=== PATIENT | male | born 1955 | race Asian ===

== ENCOUNTER 2020-05-02 18:23 | Observation (INO) | payer OTHER ==
[2020-05-02] MEDS ORDERED: ASPIRIN 81 MG CHEWABLE TABLETS PO ONE (19:01)
[2020-05-02] MEDS ORDERED: ASPIRIN 81 MG CHEWABLE TABLETS ONE (19:06)
--- NOTE | 2020-05-02 19:35 | PDOC ---
Documentation entered by Enriqueta Adam SCRIBE, acting as scribe for Hallie Pablo DO. Hallie Pablo DO: This documentation has been prepared by the Kia soria Brenda, SCRIBE, under my direction and personally reviewed by me in its entirety. I confirm that the documentation accurately reflects all work, treatment, procedures, and medical decision making performed by me. Attending Attestation - Resident Resident Name: LitoalfredooscarMoshe - ED Attending Attestation I have performed the following: I have examined & evaluated the patient, The case was reviewed & discussed with the resident, I agree w/resident's findings & plan, Exceptions are as noted - HPI HPI: 05/02/20 19:18 The patient is a 64 year old male with a significant PMH of who presents to the emergency department for evaluation of 3 days of intermittent chest pain associated with shortness of breath. He notes that 4 days ago he was walking and experienced an episode of weakness where he had to stop walking and had nausea/vomiting, along with chest pain that resolved. Patient arrived from [facility] 3 weeks ago and while there (2 months ago), he recieved cardia workup with an angiography that showed 1 vessel with 80% occlusion and another one with 50% occlusion, with no stents. The patient denies headache and dizziness. Denies fever, chills, diarrhea and constipation. Denies dysuria, frequency, urgency and hematuria. Allergies: NKA - Physicial Exam PE: 05/02/20 19:21 GENERAL: Awake, alert, and fully oriented, in no acute distress NECK: Normal ROM, supple, no lymphadenopathy, JVD, or masses LUNGS: Breath sounds equal, clear to auscultation bilaterally. No wheezes, and no crackles HEART: Regular rate and rhythm, normal S1 and S2, no murmurs, rubs or gallops ABDOMEN: Soft, nontender, normoactive bowel sounds. No guarding, no rebound. No masses EXTREMITIES: Normal range of motion, no edema. No clubbing or cyanosis. No cords, erythema, or tenderness NEUROLOGICAL: Cranial nerves II through XII grossly intact. Normal speech, normal gait SKIN: Warm, Dry, normal turgor, no rashes or lesions noted. - Medical Decision Making 05/02/20 19:25 a/p: 64yo male from [facility] who arrived 3 weeks ago with cp x 3 days -intermittent cp assoc with sob -was walking 4 days ago with an episode where he felt weak, had to stop walking, had 1 episode of nv, cp - resolved with rest -2m ago in [facility] underwent cardiac workup with angiography which showed 1 vessel with 80% occlusion and another w 50% occlusion - no stents placed -pt with 1 min episodes of chest pressure - no radiation -concern for acs -no pleuritic cp, no LE edema or cramping -will send labs, ekg, cxr -asa -will need obs vs admission pending trop 05/02/20 20:05 cxr clear labs pending asa given and pt feels better 05/02/20 20:45 trop neg will call pmd 05/02/20 20:51 pt updated on labs pmd dr. palm call placed to dr. palm for obs placement for cp 05/02/20 20:[address] Palm - accepts pt to obs Heart Score/ECG Review - ECG Intrepretation Comment:: 05/02/20 19:29 ekg 1: sinus at 64, nl axis, st depression inferior leads and t wave inversions lateral leads, abnl ekg ekg 2: sinus at 64, nl axis, nl interval, mild st depression inferior leads, abnl ekg Discharge - Discharge Information Problems reviewed: Yes Clinical Impression/Diagnosis: Chest pain Condition: Guarded - Admission Yes - Follow up/Referral - Patient Discharge Instructions - Post Discharge Activity
[2020-05-02 19:39] LABS: INR 1.25 (0.83-1.09); PROTHROMBIN TIME (PATIENT) 14.8 SEC (9.7-13.0)
[2020-05-02 19:40] LABS: BASO % 3.4 % (0-2.0); EOS % 1.1 % (0-4.5); HEMATOCRIT 44.6 % (35.4-49); HEMOGLOBIN 14.7 GM/dL (11.7-16.9); LYMPH % 25.4 % (8-40); MCH 30.3 pg (25.7-33.7); MEAN CELL VOLUME 91.5 fl (80-96); MEAN PLT VOLUME 7.7 fl (7.5-11.1); NEUT % 62.1 % (42.8-82.8); PLATELET COUNT 300 K/MM3 (134-434); RBC 4.87 M/mm3 (4.00-5.60); RDW 13.6 % (11.9-15.9); WHITE BLOOD COUNT 9.1 K/mm3 (4.0-10.0)
[2020-05-02 19:42] LABS: ACTIVATED PTT 36.1 SECONDS (25.2-36.5)
--- NOTE | 2020-05-02 20:04 | PDOC ---
History of Present Illness - General Chief Complaint: Chest Pain Stated Complaint: CHEST PAIN Time Seen by Provider: 05/02/20 18:46 - History of Present Illness Initial Comments: 05/02/20 19:58 64M with PMH of CAD (reported 80% occlusion in an unspecified coronary 2 months ago in [facility] with no reported intervention), HLD, longtime smoker, presents with 4 days of intermitted left sided pressure-like chest pain. Worse when walking but also occurs at rest, lasts for a minute, does not radiate, associated with SOB, sweating, and lightheadedness. Denies n/v. Reports back pain that is not related in timing to the chest pain. PMH: as above PSH: none Allergies Allergy/AdvReac Type Severity Reaction Status Date / Time No Known Allergies Allergy Verified 05/02/20 18:27 ROS GENERAL/CONSTITUTIONAL: No fever or chills. No weakness. HEAD, EYES, EARS, NOSE AND THROAT: No change in vision. No ear pain or discharge. No sore throat. CARDIOVASCULAR: chest pain and shortness of breath RESPIRATORY: No cough, wheezing, or hemoptysis. GASTROINTESTINAL: No nausea, vomiting, diarrhea or constipation. GENITOURINARY: No dysuria, frequency, or change in urination. MUSCULOSKELETAL: No joint or muscle swelling or pain. No neck or back pain. SKIN: No rash NEUROLOGIC: No headache, vertigo, loss of consciousness, or change in strength/sensation. ENDOCRINE: No increased thirst. No abnormal weight change HEMATOLOGIC/LYMPHATIC: No anemia, easy bleeding, or history of blood clots. ALLERGIC/IMMUNOLOGIC: No hives or skin allergy. PE GENERAL: Awake, alert, and fully oriented, in no acute distress HEAD: No signs of trauma, normocephalic, atraumatic EYES: PERRLA, EOMI, sclera anicteric, conjunctiva clear ENT: Auricles normal inspection, hearing grossly normal, nares patent, oropharynx clear without exudates. Moist mucosa NECK: Normal ROM, supple, no lymphadenopathy, JVD, or masses LUNGS: No distress, speaks full sentences, clear to auscultation bilaterally HEART: Regular rate and rhythm, normal S1 and S2, no murmurs, rubs or gallops, peripheral pulses normal and equal bilaterally. ABDOMEN: Soft, nontender, normoactive bowel sounds. No guarding, no rebound. No masses EXTREMITIES : Normal inspection, Normal range of motion, no edema. No clubbing or cyanosis. NEUROLOGICAL: Normal speech, no focal sensorimotor deficits SKIN: Warm, Dry, normal turgor, no rashes or lesions noted Vital Signs Temp Pulse Resp BP Pulse Ox 98.5 F 68 20 124/77 97 05/02/20 18:27 05/02/20 19:10 05/02/20 19:10 05/02/20 19:10 05/02/20 19:10 64M with PMH of CAD (reported 80% occlusion in an unspecified coronary 2 months ago in [facility] with no reported intervention), HLD, longtime smoker, presents with 4 days of intermitted left sided pressure-like chest pain. Vitals and exam unremarkable. DDx includes ACS, pneumonia, GERD. -EKG -CXR -CBC, CMP, cardiac enzymes, TSH, lipase -aspirin 324 05/02/20 22:08 EKG at 18:36: NSR, rate 64, normal axis and intervals, ST depressions in II, III, and aVF with TWI in V4-V5 EKG at 19:02: unchanged. NSR, rate 64, normal axis and intervals, ST depressions in II, III, and aVF with TWI in V4-V5 CXR: no acute pathology Labs: unremarkable. trop neg x1 Laboratory Last Values WBC 9.1 K/mm3 (4.0-10.0) 05/02/20 18:43 RBC 4.87 M/mm3 (4.00-5.60) 05/02/20 18:43 Hgb 14.7 GM/dL (11.7-16.9) 05/02/20 18:43 Hct 44.6 % (35.4-49) 05/02/20 18:43 MCV 91.5 fl (80-96) 05/02/20 18:43 MCH 30.3 pg (25.7-33.7) 05/02/20 18:43 MCHC 33.0 g/dl (32.0-35.9) 05/02/20 18:43 RDW 13.6 % (11.9-15.9) 05/02/20 18:43 Plt Count 300 K/MM3 (134-434) 05/02/20 18:43 MPV 7.7 fl (7.5-11.1) 05/02/20 18:43 Absolute Neuts (auto) 5.7 K/mm3 (1.5-8.0) 05/02/20 18:43 Neutrophils % 62.1 % (42.8-82.8) 05/02/20 18:43 Lymphocytes % 25.4 % (8-40) 05/02/20 18:43 Monocytes % 8.0 % (3.8-10.2) 05/02/20 18:43 Eosinophils % 1.1 % (0-4.5) 05/02/20 18:43 Basophils % 3.4 % (0-2.0) H 05/02/20 18:43 Nucleated RBC % 0 % (0-0) 05/02/20 18:43 PT with INR 14.80 SEC (9.7-13.0) H 05/02/20 18:43 INR 1.25 (0.83-1.09) H 05/02/20 18:43 PTT (Actin FS) 36.1 SECONDS (25.2-36.5) 05/02/20 18:43 Sodium 141 mmol/L (136-145) 05/02/20 18:43 Potassium 3.8 mmol/L (3.5-5.1) 05/02/20 18:43 Chloride 108 mmol/L (98-107) H 05/02/20 18:43 Carbon Dioxide 28 mmol/L (21-32) 05/02/20 18:43 Anion Gap 5 MMOL/L (8-16) L 05/02/20 18:43 BUN 12.5 mg/dL (7-18) 05/02/20 18:43 Creatinine 0.9 mg/dL (0.55-1.3) 05/02/20 18:43 Est GFR (CKD-EPI)AfAm 105.72 05/02/20 18:43 Est GFR (CKD-EPI)NonAf 91.22 05/02/20 18:43 Random Glucose 96 mg/dL (74-106) 05/02/20 18:43 Calcium 8.4 mg/dL (8.5-10.1) L 05/02/20 18:43 Magnesium 2.1 mg/dL (1.8-2.4) 05/02/20 18:43 Total Bilirubin 0.4 mg/dL (0.2-1) 05/02/20 18:43 AST 20 U/L (15-37) 05/02/20 18:43 ALT 23 U/L (13-61) 05/02/20 18:43 Alkaline Phosphatase 86 U/L (45-117) 05/02/20 18:43 Creatine Kinase 113 U/L (26-308) 05/02/20 18:43 Troponin I < 0.02 ng/ml (0.00-0.05) 05/02/20 18:43 B-Natriuretic Peptide 43.9 pg/ml (5-125) 05/02/20 18:43 Total Protein 6.9 g/dl (6.4-8.2) 05/02/20 18:43 Albumin 3.5 g/dl (3.4-5.0) 05/02/20 18:43 Lipase 219 U/L (73-393) 05/02/20 18:43 TSH 1.37 uIU/ml (0.358-3.74) 05/02/20 18:43 Admit to tele-obs for r/o [place] Signed out to admitting attending 05/02/20 22:18 Past History - Medical History Allergies/Adverse Reactions: Allergies Allergy/AdvReac Type Severity Reaction Status Date / Time No Known Allergies Allergy Verified 05/02/20 18:27 COPD: No HTN: Yes - Psycho-Social/Smoking History Smoking History: Current every day smoker Have you smoked in the past 12 months: Yes Number of Cigarettes Smoked Daily: 20 Information on smoking cessation initiated: Yes - Substance Abuse Hx (Audit-C & DAST Scrn) How often the patient has a drink containing alcohol: Never Score: In Men: 4 or > Positive; In Women: 3 or > Positive: 0 Screen Result (Pos requires Nsg. Audit-10AR): Negative In the last yr the pt used illegal drug/Rx for NonMed reason: No Score: Yes response is considered Positive: 0 Screen Result (Positive result requires Nsg. DAST-10): Negative *Physical Exam - Vital Signs Last Vital Signs Temp Pulse Resp BP Pulse Ox 98.5 F 68 20 124/77 97 05/02/20 18:27 05/02/20 19:10 05/02/20 19:10 05/02/20 19:10 05/02/20 19:10 ED Treatment Course - LABORATORY CBC & Chemistry Diagram: 05/02/20 18:43 05/02/20 18:43 - ADDITIONAL ORDERS Additional order review: Laboratory Results 05/02/20 18:43 PT with INR 14.80 H INR 1.25 H PTT (Actin FS) 36.1 05/02/20 18:43 RBC 4.87 MCV 91.5 MCHC 33.0 RDW 13.6 MPV 7.7 Neutrophils % 62.1 Lymphocytes % 25.4 Monocytes % 8.0 Eosinophils % 1.1 Basophils % 3.4 H - Medications Given in the ED: ED Medications Discontinued Medications Generic Name Dose Route Start Last Admin Trade Name Freq PRN Reason Stop Dose Admin Aspirin 324 mg 05/02/20 19:01 05/02/20 19:12 Asa - PO 05/02/20 19:02 324 mg ONCE ONE Administration Discharge - Discharge Information Problems reviewed: Yes Clinical Impression/Diagnosis: Chest pain Qualifiers: Chest pain type: unspecified Qualified Code(s): R07.9 - Chest pain, unspecified Condition: Guarded - Follow up/Referral - Patient Discharge Instructions - Post Discharge Activity
[2020-05-02 20:21] LABS: ALBUMIN 3.5 g/dl (3.4-5.0); ALK PHOS 86 U/L (45-117); ANION GAP 5 MMOL/L (8-16); BILIRUBIN,TOTAL 0.4 mg/dL (0.2-1); BLOOD UREA NITROGEN 12.5 mg/dL (7-18); CALCIUM 8.4 mg/dL (8.5-10.1); CHLORIDE 108 mmol/L (98-107); CO2 28 mmol/L (21-32); CREATININE 0.9 mg/dL (0.55-1.3); GLUCOSE,RANDOM 96 mg/dL (74-106); LIPASE 219 U/L (73-393); MAGNESIUM 2.1 mg/dL (1.8-2.4); N-TERMINAL BNP 43.9 pg/ml (5-125); POTASSIUM 3.8 mmol/L (3.5-5.1); SGOT/AST 20 U/L (15-37); SGPT/ALT 23 U/L (13-61); SODIUM 141 mmol/L (136-145); TOT PROT 6.9 g/dl (6.4-8.2)
[2020-05-02] MEDS ORDERED: ACETAMINOPHEN 325 MG TABLET (FP) PO ONE (20:50)
[2020-05-02] MEDS ORDERED: ATORVASTATIN CA 80 MG TABLET (FP) PO ONE (21:05)
[2020-05-02] MEDS ORDERED: NITROGLYCERIN SUBLINGUAL 1/150 0.4 MG TAB SL PRN (21:08)
[2020-05-02] MEDS ORDERED: ACETAMINOPHEN 325 MG TABLET (FP) ONE (21:39)
[2020-05-02] MEDS ORDERED: ATORVASTATIN CA 80 MG TABLET (FP) ONE (21:39)
[2020-05-02 22:02] LABS: CHOLESTEROL 145 mg/dL (50-200); HDL CHOLESTEROL 41 mg/dL (40-60); LDL CHOLESTEROL (ONLY SJRH) 87 mg/dL (5-100); TRIGLYCERIDES 135 mg/dL (0-150)
--- NOTE | 2020-05-03 06:12 | CON.CARD ---
Consult Consult Specialty:: Cardiology Referred by:: Dr Alberto Reason for Consultation:: Angina - History of Present Illness Chief Complaint: exertional chest pain History of Present Illness: 64 M with reported CAD on recent cath in [facility] presents with exertional chest pain, nausea. Enzymes negative x 2 History was obtained using senior telecommunications technician phone. Patient describes 1 year of exertional chest pain, occasionally radiating to back. He was cathed in [facility], where he resides, 2 weeks ago and was told he had one 50% stenosis and one 80% stenosis- PCI was recommended, but he was declined and was put on medical therapy with 5 medications which helped his angina. [place] to [place] to visit daughter and yesterday felt escalation of his symptoms- worsened exertional chest pain and nausea and it was more frequent, came to ER. PMH: HLD, CAD ALL: None SH: smokes 20 cigs/day. Works in a bank. - History Source History Provided By: Patient - Past Medical History Cardio/Vascular: Yes: CAD Pulmonary: No: Asthma, Bronchitis, Cancer, COPD, O2 Dependent, Pneumonia, Previously Intubated, Pulmonary Embolus, Pulmonary Fibrosis, Sleep Apnea, Other Gastrointestinal: No: Ascites, Cancer, Constipation, Crohn's Disease, Diverticulitis, Diverticulosis, Esophageal Varices, Gastritis, GERD, GI Bleed, Hemorrhoids, Hiatal Hernia, Inflamatory Bowel Disease, Irritable Bowel Disease, Pancreatitis, Peptic Ulcer Disease, Ulcerative Colitis, Other Hepatobiliary: No: Cirrhosis, Cholelithiasis, Cholecystitis, Choledocholithiasis, Hepatitis A, Hepatitis B, Hepatitis C, Other Renal/: No: Renal Failure, Renal Inusuff, BPH, Cancer, Hematuria, Hemodialysis, Neurogenic Bladder, Renal Calculi, UTI, Other Heme/Onc: No: Anemia, B12 Deficiency, Bleeding Disorder, Cancer, Current Chemotherapy, Current Radiation Therapy, Hemochromatosis, Hypercoaguable State, Myeloproliferative Synd, Sickle Cell Disease, Sickle Cell Trait, Thrombocytopenia, Other Infectious Disease: No: AIDS, C-Diff, Herpes Zoster, HIV, MRSA, STD's, Tuberculosis, VREF, Other Psych: No: Addictions, Anxiety, Bipolar, Depression, Panic, Psychosis, Schizophrenia, Other Musculoskeletal: No: Bursitis, Chronic low back pain, Hemiparesis, Hemiplegia, Osteoarthritis, Paraplegia, Other ENT: No: Allergic Rhinitis, Sinusitis, Other Endocrine: No: Frederick's Disease, Qi's Disease, Diabetes Insipidus, Diabetes Mellitus, Hyperparathyroidism, Hyperthyroidism, Hypothyroidism, Osteopenia, SIADH, Other Dermatology: No: Basal Cell, Cellulitis, Eczema, Melanoma, Psoriasis, Squamous Cell, Other - Alcohol/Substance Use Hx Alcohol Use: No History of Substance Use: reports: None - Smoking History Smoking history: Current every day smoker Have you smoked in the past 12 months: Yes Aproximately how many cigarettes per day: 20 - Social History Usual Living Arrangement: With Child History of Recent Travel: Yes (From [facility]) Home Medications - Allergies Allergies/Adverse Reactions: Allergies Allergy/AdvReac Type Severity Reaction Status Date / Time No Known Allergies Allergy Verified 05/02/20 18:27 Family Medical History Family History: Unable to Obtain (not pertinent to this presentation), Unremarkable Review of Systems - Review of Systems Constitutional: reports: No Symptoms Eyes: reports: No Symptoms HENT: reports: No Symptoms Neck: reports: No Symptoms Cardiovascular: reports: Chest Pain Respiratory: reports: Exercise Intolerance Gastrointestinal: reports: No Symptoms Genitourinary: reports: No Symptoms Breasts: reports: No Symptoms Reported Musculoskeletal: reports: No Symptoms Integumentary: reports: No Symptoms Endocrine: reports: No Symptoms Hematology/Lymphatic: reports: No Symptoms Psychiatric: reports: No Symptoms - Risk Factors Known Risk Factors: Yes: Age, Hypercholesterolemia, Smoking Vital Signs: Vital Signs Temperature 97.9 F 05/03/20 02:00 Pulse Rate 63 05/03/20 02:00 Respiratory Rate 18 05/03/20 05:04 Blood Pressure 119/72 05/03/20 02:00 O2 Sat by Pulse Oximetry (%) 98 05/03/20 05:04 Constitutional: Yes: No Distress, Calm Eyes: Yes: Conjunctiva Clear, EOM Intact HENT: Yes: Atraumatic, Normocephalic Neck: Yes: Supple, Trachea Midline Respiratory: Yes: Regular, Other (decreased b/l breath sounds: ?COPD) Gastrointestinal: Yes: Soft (nt) Cardiovascular: Yes: Regular Rate and Rhythm JVD: No Carotid Bruit: No Heart Sounds: Yes: S1, S2 (rrr, no m.r.g) Edema: No Peripheral Pulses WNL: Yes Neurological: Yes: Alert, Oriented ...Motor Strength: WNL - Other Data Labs, Other Data: CBC, BMP 05/02/20 18:43 05/02/20 18:43 INR, PTT INR 1.25 (0.83-1.09) H 05/02/20 18:43 Troponin, BNP 05/02/20 05/02/20 18:43 21:16 Troponin I < 0.02 < 0.02 B-Natriuretic Peptide 43.9 Troponin, BNP 05/02/20 05/02/20 18:43 21:16 Troponin I < 0.02 < 0.02 B-Natriuretic Peptide 43.9 Laboratory Tests 05/02/20 05/02/20 05/03/20 18:43 21:16 05:42 WBC 9.1 Hgb 15.2 Plt Count 284 Sodium Potassium Creatinine Troponin I < 0.02 < 0.02 05/03/20 05:42 WBC Hgb Plt Count Sodium 141 Potassium 3.9 Creatinine 0.7 Troponin I NSR64, LVH, diffuse mild nonspecific ST changes (no prior) Echo: Pending Prior Cardiac Procedures: Cardiac Catheterization Imaging - Results Chest X-ray: Report Reviewed EKG: Image Reviewed Assessment/Plan IMP: Coronary Artery Disease Unstable angina Hyperlipidemia Smoker REC: 1. CAD/Unstable Angina: - Tele - Echo for EF assessment - Need to obtain cath report : daughter has CD of cath, will ask to bring in - Medical therapy to be initiated: ASA 81mg daily, Plavix 75mg daily, Atorvastatin 40mg daily, Toprol and long acting nitrate -Check fasting lipids. -After Echo, review of cath will likely transfer to [facility] over weekend for PCI because his anginal sx have worsened on medical therapy -Try to clarify what medical regimen he was on 2. HLD: -High intensity statin -Check fasting lipids 3. Smoker: -Cessation advised.
[2020-05-03 06:41] LABS: BASO % 0.6 % (0-2.0); EOS % 2.1 % (0-4.5); HEMATOCRIT 45.2 % (35.4-49); HEMOGLOBIN 15.2 GM/dL (11.7-16.9); LYMPH % 40.9 % (8-40); MCH 30.6 pg (25.7-33.7); MCHC 33.6 g/dl (32.0-35.9); MEAN CELL VOLUME 90.9 fl (80-96); MEAN PLT VOLUME 7.7 fl (7.5-11.1); MONO % 7.4 % (3.8-10.2); PLATELET COUNT 284 K/MM3 (134-434); RBC 4.97 M/mm3 (4.00-5.60); RDW 13.3 % (11.9-15.9); WHITE BLOOD COUNT 9.1 K/mm3 (4.0-10.0)
[2020-05-03 07:13] LABS: ALBUMIN 3.2 g/dl (3.4-5.0); BILIRUBIN,TOTAL 0.7 mg/dL (0.2-1); BLOOD UREA NITROGEN 10.1 mg/dL (7-18); CALCIUM 8.5 mg/dL (8.5-10.1); CREATININE 0.7 mg/dL (0.55-1.3); POTASSIUM 3.9 mmol/L (3.5-5.1); TOT PROT 6.3 g/dl (6.4-8.2)
[2020-05-03] MEDS: CLOPIDOGREL BISULFATE 75 MG TABLET (FP) PO SCH (09:48)
[2020-05-03] MEDS: ASPIRIN 81 MG CHEWABLE TABLETS PO SCH (09:48)
[2020-05-03] MEDS: metoPROLOL SUCCINATE 25 MG TAB.SR.24H (FP) PO SCH (09:48)
[2020-05-03] MEDS ORDERED: ISOSORBIDE MONONITRATE 30 MG TAB.SR.24H (FP) PO SCH (10:00)
--- NOTE | 2020-05-03 10:02 | ECHO ---
Version: 1 Name: CLARK BERNARD Exam: Adult Echocardiogram Study Date: 05/03/2020, 8:54 AM Age: 64 Years MMode/2D Measurements & Calculations IVSd: 0.95 cm LVIDs: 1.76 cm LVIDd: 2.28 cm LVPWd: 0.83 cm LAV (MOD-bp): 25.0 ml LVOT diam: 2.00 cm Ao root diam: 2.5 cm LA dimension: 2.49 cm Doppler Measurements & Calculations MV E max krishan: 73.3 cm/sec Med E/e': 10.2 MV A max krishan: 85.3 cm/sec Med Peak E' Krishan: 7.2 cm/sec MV E/A: 0.86 Lat E/e': 7.2 Lat Peak E' Krishan: 10.1 cm/sec Ao max P.9 mmHg Ao V2 max: 131.7 cm/sec Left Ventricle Left ventricular systolic function is normal. Ejection Fraction = 55-60%. The transmitral spectral D oppler flow pattern is suggestive of impaired LV relaxation. The left ventricular wall motion is normal. Right Ventricle The right ventricle is normal in size and function. Atria Normal left and right atrial size and function. Mitral Valve The mitral valve is normal in structure and function. There is trace to mild mitral regurgitation. Tricuspid Valve The tricuspid valve is normal in structure and function. There is trace tricuspid regurgitation. Aortic Valve There is mild aortic sclerosis.;. No hemodynamically significant valvular aortic stenosis. No aortic regurgitation is present. Pulmonic Valve The pulmonic valve is not well seen, but is grossly normal. There is no pulmonic valvular stenosis. Trace pulmonic valvular regurgitation. Great Vessels The aortic root is normal size. Pericardium/Pleura There is no pericardial effusion. Summary Statements Left ventricular systolic function is normal. Ejection Fraction = 55-60%. The transmitral spectral Doppler flow pattern is suggestive of impaired LV relaxation. The right ventricle is normal in size and function. There is trace to mild mitral regurgitation. There is mild aortic sclerosis.; The aortic root is normal size. There is no pericardial effusion. MD Acuna *Stefan 05/03/2020, 10:01 AM Ordering Physician: Robinson Ingram Performed By: Ying Klein
[2020-05-03] MEDS: NICOTINE 14 MG/24 HOURS TOPICAL PATCH TD SCH (10:29)
--- NOTE | 2020-05-03 10:38 | EKG ---
Test Reason : Blood Pressure : / mmHG Vent. Rate : 064 BPM Atrial Rate : 064 BPM P-R Int : 132 ms QRS Dur : 088 ms QT Int : 356 ms P-R-T Axes : 071 074 240 degrees QTc Int : 367 ms NORMAL SINUS RHYTHM NONSPECIFIC ST ABNORMALITY ABNORMAL ECG NO PREVIOUS ECGS AVAILABLE Confirmed by JIN NGUYEN MD ([id number]) on 05/03/2020 10:38:29 AM Referred By: Confirmed By:JIN GNUYEN MD
--- NOTE | 2020-05-03 10:38 | EKG ---
Test Reason : Blood Pressure : / mmHG Vent. Rate : 064 BPM Atrial Rate : 064 BPM P-R Int : 138 ms QRS Dur : 086 ms QT Int : 394 ms P-R-T Axes : 068 075 111 degrees QTc Int : 406 ms NORMAL SINUS RHYTHM NONSPECIFIC ST ABNORMALITY ABNORMAL ECG Confirmed by JIN NGUYEN MD ([id number]) on 05/03/2020 10:38:11 AM Referred By: Confirmed By:JIN NGUYEN MD
--- NOTE | 2020-05-03 12:23 | HP ---
DATE OF ADMISSION: 05/02/2020 DATE OF DICTATION: 05/03/2020 HISTORY: This is a 64-year-old [place] male, recently came to [place], known to me for a few months, chronic smoker. No other medical problems. Came to the emergency room with chest pain, got admitted, rule out CA. Evaluated by cardiology, Dr. Aviles. He has history of grownup daughter and . He is a chronic smoker, was smoking 4 packets a day. Now last time when I saw him in the office I made him to smoke 2 packets, and we were planning to quit smoking by August 02. PHYSICAL EXAMINATION: General: Awake, alert, oriented, not in distress. Still getting some chest pain. Vital Signs: Blood pressure is 120/ , respiration 20, temperature 98. HEENT: Unremarkable. Neck: Supple. No JVD. Lungs: Clear. Heart: S1, S2 normal. No S3, S4. Abdomen: Soft, nontender. Extremities: No edema. LABORATORY: WBC 9, hemoglobin 15, platelets 284. Chemistry: Sodium 141, potassium 3.9, chloride 109, BUN 10, creatinine 0.7. Blood sugar 78. Troponin negative. Chest x-ray: Bi-apical pleural capping. No significant change. No CHF. EKG to be evaluated. IMPRESSION: Atypical chest pain, rule out myocardial infarction, and chronic smoker. Cardiology consult by Dr. Aviles appreciated. Will continue present medications. Will start on patches for nicotine withdrawal. Deyanira [id number]
[2020-05-03 13:57] VITALS: BMI 19.6
[2020-05-03] MEDS: ATORVASTATIN CA 40 MG TABLET (FP) PO SCH (21:42)
[2020-05-04] MEDS ORDERED: ACETAMINOPHEN 325 MG TABLET (FP) PO ONE (06:28)
[2020-05-04 07:23] LABS: CHOLESTEROL 138 mg/dL (50-200); HDL CHOLESTEROL 44 mg/dL (40-60); LDL CHOLESTEROL (ONLY SJRH) 84 mg/dL (5-100); TRIGLYCERIDES 93 mg/dL (0-150)
--- NOTE | 2020-05-04 08:41 | PN ---
Progress Note, Physician Chief Complaint: No new chest pain History of Present Illness: 64 yrs old man smoker H/o CAd recent Cath at [facility] in 03/2020 shows 70-80% Left Circumflex and 50% LAD, LCX PCI was advised but patient declined now present with ongoing chest pain despite maximum medical therapy normal serial CE and ECHO no acute ST T changes in EKG, evaluated by Cardiology recommended transfer to [facility] for possible PCI - Current Medication List Current Medications: Active Medications Aspirin (Asa -) 81 mg PO DAILY [facility] Last Admin: 05/03/20 09:48 Dose: 81 mg Documented by: Atorvastatin Calcium (Lipitor -) 40 mg PO HS [facility] Last Admin: 05/03/20 21:42 Dose: 40 mg Documented by: Clopidogrel Bisulfate (Plavix -) 75 mg PO DAILY [facility] Last Admin: 05/03/20 09:48 Dose: 75 mg Documented by: Isosorbide Mononitrate (Imdur -) 30 mg PO DAILY [facility] Metoprolol Succinate (Toprol Xl -) 12.5 mg PO DAILY [facility] Last Admin: 05/03/20 09:48 Dose: 12.5 mg Documented by: Nicotine (Nicoderm Patch -) 14 mg TD DAILY [facility] Last Admin: 05/03/20 10:29 Dose: 14 mg Documented by: Nitroglycerin (Nitrostat -) 0.4 mg SL Q5M PRN PRN Reason: FOR CHEST PAIN - Objective Vital Signs: Vital Signs Temperature 97.8 F 05/04/20 05:45 Pulse Rate 61 05/04/20 05:45 Respiratory Rate 16 05/04/20 05:45 Blood Pressure 115/61 05/04/20 05:45 O2 Sat by Pulse Oximetry (%) 97 05/04/20 05:45 Middle aged man not in distress HEENT:MM moist, no anemia, PERRLA EOMI NECK: No JVd No Bruit CJEST: Non tender CTA B/L CVS: S1S2 R ABD: no distention , non tender Bs + EXT: No edema, feet [employer]ARBAGE COLLECTOR DRIVER: AOX3 non focal Labs: CBC, BMP 05/03/20 05:42 05/03/20 05:42 INR, PTT INR 1.25 (0.83-1.09) H 05/02/20 18:43 Problem List - Problems (1) Chest pain Assessment/Plan: H/O CAD s/p Cath at [facility] in 03/2020 shows 70-80% Left Circumflex and 50% LAD, LCX PCI was advised but patient declined now present with ongoing chest pain despite maximum medical therapy normal serial CE and ECHO no acute ST T changes in EKG, evaluated by Cardiology recommended transfer to [place] for possible PCI, cont Metoprolol XL 25 mg ASA 81 , plavix 75 abnd Lipitor 40 mg dialy HD S/L NTG PRN will hold Imdur as patient developed sever head ache with Imdur at present CP free. Code(s): R07.9 - CHEST PAIN, UNSPECIFIED Qualifiers: Chest pain type: unspecified Qualified Code(s): R07.9 - Chest pain, unspecified (2) Hyperlipidemia Assessment/Plan: LDL at target cont Lipitor 40 mg daily Problems reviewed: Yes Code(s): E78.5 - HYPERLIPIDEMIA, UNSPECIFIED (3) Encounter for smoking cessation counseling Assessment/Plan: Smoking cessation will cont Nicotine patch Problems reviewed: Yes Code(s): Z71.6 - TOBACCO ABUSE COUNSELING
[2020-05-04] MEDS: metoPROLOL SUCCINATE 25 MG TAB.SR.24H (FP) PO SCH (09:14)
[2020-05-04] MEDS: ASPIRIN 81 MG CHEWABLE TABLETS PO SCH (09:15)
[2020-05-04] MEDS: CLOPIDOGREL BISULFATE 75 MG TABLET (FP) PO SCH (09:16)
[2020-05-04] MEDS ORDERED: ISOSORBIDE MONONITRATE 30 MG TAB.SR.24H (FP) PO SCH (10:00)
[2020-05-04] MEDS ORDERED: PT OWN MED DRAWER 7, Y5N ONE (10:21)
[2020-05-04] MEDS: NICOTINE 14 MG/24 HOURS TOPICAL PATCH TD SCH (10:26)
--- NOTE | 2020-05-04 10:35 | PN ---
Progress Note (short form) - Note Progress Note: Chief Complaint: exertional chest pain History of Present Illness: 64 M with reported CAD on recent cath in [facility] presents with exertional chest pain, nausea. Enzymes negative x 2 Patient describes 1 year of exertional chest pain, occasionally radiating to back. He was cathed in [facility], where he resides, 2 weeks ago and was told he had one 50% stenosis and one 80% stenosis- PCI was recommended, but he was declined and was put on medical therapy with 5 medications which helped his angina. [place] to [place] and yesterday felt escalation of his symptoms- worsened exertional chest pain and nausea and it was more frequent, came to ER. s: today reports no cp. yesterday had mild central chest pressure. no sob palps dizzy. Current Medications Generic Name Dose Route Start Last Admin Trade Name Freq PRN Reason Stop Dose Admin Aspirin 81 mg 05/03/20 10:00 05/04/20 09:15 Asa - PO 81 mg DAILY RACHAEL Administration Atorvastatin Calcium 40 mg 05/03/20 22:00 05/03/20 21:42 Lipitor - PO 40 mg HS RACHAEL Administration Clopidogrel Bisulfate 75 mg 05/03/20 10:00 05/04/20 09:16 Plavix - PO 75 mg DAILY RACHAEL Administration Isosorbide Mononitrate 30 mg 05/04/20 10:00 05/04/20 09:16 Imdur - PO 30 mg DAILY RACHAEL Administration Metoprolol Succinate 12.5 mg 05/03/20 10:00 05/04/20 09:14 Toprol Xl - PO 12.5 mg DAILY RACHAEL Administration Nicotine 14 mg 05/03/20 10:00 05/04/20 10:26 Nicoderm Patch - TD 14 mg DAILY RACHAEL Administration Nitroglycerin 0.4 mg 05/02/20 21:08 05/04/20 09:16 Nitrostat - SL 0.4 mg Q5M PRN Administration FOR CHEST PAIN Vital Signs Period Temp Pulse Resp BP Sys/Christy Pulse Ox Last 24 Hr 97.6 F-97.9 F 59-70 16-18 94-115/57-66 96-100 Constitutional: Yes: No Distress, Calm Eyes: Yes: Conjunctiva Clear, EOM Intact HENT: Yes: Atraumatic, Normocephalic Neck: Yes: Supple, Trachea Midline Respiratory: Yes: Regular, Other (decreased b/l breath sounds: ?COPD) Gastrointestinal: Yes: Soft (nt) Cardiovascular: Yes: Regular Rate and Rhythm JVD: No Carotid Bruit: No Heart Sounds: Yes: S1, S2 (rrr, no m.r.g) Edema: No Peripheral Pulses WNL: Yes Neurological: Yes: Alert, Oriented CBC, BMP 05/03/20 05:42 05/03/20 05:42 NSR64, LVH, diffuse mild nonspecific ST changes (no prior) Prior Cardiac Procedures: Cardiac Catheterization tele: sr Imaging - Results Chest X-ray: Report Reviewed EKG: Image Reviewed Assessment/Plan IMP: Coronary Artery Disease Unstable angina Hyperlipidemia Smoker REC: 1. CAD, chest pain: - Tele benign. echo here unremarkable. -cath 03/2020 in [place] reports 70-80% midlcx (non dom). rec'd pci then but declined, now here with recurrent cp. -cont ASA 81mg daily, Plavix 75mg daily, Atorvastatin 40mg daily, Toprol and long acting nitrate -will arrange for transfer to [facility] for PCI because his anginal sx have worsened on medical therapy 2. HLD: -High intensity statin 3. Smoker: -Cessation advised.
[2020-05-04] MEDS ORDERED: ACETAMINOPHEN 325 MG TABLET (FP) PO PRN (15:14)
[2020-05-04] MEDS: ATORVASTATIN CA 40 MG TABLET (FP) PO SCH (21:03)
[2020-05-05] MEDS ORDERED: PT OWN MED DRAWER 7, Y5N ONE (08:57)
[2020-05-05] MEDS: metoPROLOL SUCCINATE 25 MG TAB.SR.24H (FP) PO SCH (09:00)
[2020-05-05] MEDS: NICOTINE 14 MG/24 HOURS TOPICAL PATCH TD SCH (09:00)
[2020-05-05] MEDS: ASPIRIN 81 MG CHEWABLE TABLETS PO SCH (09:00)
[2020-05-05] MEDS: CLOPIDOGREL BISULFATE 75 MG TABLET (FP) PO SCH (09:00)
[2020-05-05 10:17] VITALS: BP 127/80; PULSE 65; TEMP 97.9
--- NOTE | 2020-05-05 10:29 | PN ---
Progress Note, Physician Chief Complaint: No new chest pain History of Present Illness: 64 yrs old man smoker H/o CAd recent Cath at [facility] in 03/2020 shows 70-80% Left Circumflex and 50% LAD, LCX PCI was advised but patient declined now present with ongoing chest pain despite maximum medical therapy normal serial CE and ECHO no acute ST T changes in EKG, evaluated by Cardiology recommended transfer to [place] for possible PCI - Current Medication List Current Medications: Active Medications Acetaminophen (Tylenol -) 650 mg PO Q6H PRN PRN Reason: HEADACHE Last Admin: 05/04/20 15:27 Dose: 650 mg Documented by: Aspirin (Asa -) 81 mg PO DAILY [facility] Last Admin: 05/05/20 09:00 Dose: 81 mg Documented by: Atorvastatin Calcium (Lipitor -) 40 mg PO HS [facility] Last Admin: 05/04/20 21:03 Dose: 40 mg Documented by: Clopidogrel Bisulfate (Plavix -) 75 mg PO DAILY [facility] Last Admin: 05/05/20 09:00 Dose: 75 mg Documented by: Metoprolol Succinate (Toprol Xl -) 12.5 mg PO DAILY [facility] Last Admin: 05/05/20 09:00 Dose: 12.5 mg Documented by: Nicotine (Nicoderm Patch -) 14 mg TD DAILY [facility] Last Admin: 05/05/20 09:00 Dose: 14 mg Documented by: Nitroglycerin (Nitrostat -) 0.4 mg SL Q5M PRN PRN Reason: FOR CHEST PAIN Last Admin: 05/04/20 09:16 Dose: 0.4 mg Documented by: - Objective Vital Signs: Vital Signs Temperature 97.9 F 05/05/20 10:00 Pulse Rate 65 05/05/20 10:00 Respiratory Rate 18 05/05/20 10:00 Blood Pressure 127/80 05/05/20 10:00 O2 Sat by Pulse Oximetry (%) 96 05/05/20 10:00 Middle aged man not in distress HEENT:MM moist, no anemia, PERRLA EOMI NECK: No JVd No Bruit CJEST: Non tender CTA B/L CVS: S1S2 R ABD: no distention , non tender Bs + EXT: No edema, feet EATING DISORDER PSYCHOLOGIST: AOX3 non focal Labs: CBC, BMP 05/03/20 05:42 05/03/20 05:42 INR, PTT INR 1.25 (0.83-1.09) H 05/02/20 18:43 Problem List - Problems (1) Chest pain Assessment/Plan: H/O CAD s/p Cath at [facility] in 03/2020 shows 70-80% Left Circumflex and 50% LAD, LCX PCI was advised but patient declined now present with ongoing chest pain despite maximum medical therapy normal serial CE and ECHO no acute ST T changes in EKG, evaluated by Cardiology recommended transfer to [place] for possible PCI, cont Metoprolol XL 25 mg ASA 81 , plavix 75 and Lipitor 40 mg dialy HD S/L NTG PRN will hold Imdur as patient developed sever head ache with Imdur at present CP free. Code(s): R07.9 - CHEST PAIN, UNSPECIFIED Qualifiers: Qualified Code(s): R07.9 - Chest pain, unspecified (2) Hyperlipidemia Assessment/Plan: LDL at target cont Lipitor 40 mg daily Code(s): E78.5 - HYPERLIPIDEMIA, UNSPECIFIED (3) Encounter for smoking cessation counseling Assessment/Plan: Smoking cessation will cont Nicotine patch Code(s): Z71.6 - TOBACCO ABUSE COUNSELING
--- NOTE | 2020-05-05 10:31 | PN ---
Progress Note (short form) - Note Progress Note: Chief Complaint: exertional chest pain History of Present Illness: 64 M with reported CAD on recent cath in [facility] presents with exertional chest pain, nausea. Enzymes negative x 2 Patient describes 1 year of exertional chest pain, occasionally radiating to back. He was cathed in [facility], where he resides, 2 weeks ago and was told he had one 50% stenosis and one 80% stenosis- PCI was recommended, but he was declined and was put on medical therapy with 5 medications which helped his angina. [place] to [place] and yesterday felt escalation of his symptoms- worsened exertional chest pain and nausea and it was more frequent, came to ER. +cigs. s: yesterday had mild central nonradiating chest pressure, no associated sx. no cp now. no sob palps dizzy. Current Medications Generic Name Dose Route Start Last Admin Trade Name Freq PRN Reason Stop Dose Admin Acetaminophen 650 mg 05/04/20 15:14 05/04/20 15:27 Tylenol - PO 650 mg Q6H PRN Administration HEADACHE Aspirin 81 mg 05/03/20 10:00 05/05/20 09:00 Asa - PO 81 mg DAILY RACHAEL Administration Atorvastatin Calcium 40 mg 05/03/20 22:00 05/04/20 21:03 Lipitor - PO 40 mg HS RACHAEL Administration Clopidogrel Bisulfate 75 mg 05/03/20 10:00 05/05/20 09:00 Plavix - PO 75 mg DAILY RACHAEL Administration Metoprolol Succinate 12.5 mg 05/03/20 10:00 05/05/20 09:00 Toprol Xl - PO 12.5 mg DAILY RACHAEL Administration Nicotine 14 mg 05/03/20 10:00 05/05/20 09:00 Nicoderm Patch - TD 14 mg DAILY RACHAEL Administration Nitroglycerin 0.4 mg 05/02/20 21:08 05/04/20 09:16 Nitrostat - SL 0.4 mg Q5M PRN Administration FOR CHEST PAIN Vital Signs Temperature 97.9 F 05/05/20 10:00 Pulse Rate 65 05/05/20 10:00 Respiratory Rate 18 05/05/20 10:00 Blood Pressure 127/80 05/05/20 10:00 O2 Sat by Pulse Oximetry (%) 96 05/05/20 10:00 Constitutional: Yes: No Distress, Calm Eyes: Yes: Conjunctiva Clear, EOM Intact HENT: Yes: Atraumatic, Normocephalic Neck: Yes: Supple, Trachea Midline Respiratory: Yes: Regular, Other (decreased b/l breath sounds: ?COPD) Gastrointestinal: Yes: Soft (nt) Cardiovascular: Yes: Regular Rate and Rhythm JVD: No Carotid Bruit: No Heart Sounds: Yes: S1, S2 (rrr, no m.r.g) Edema: No Peripheral Pulses WNL: Yes Neurological: Yes: Alert, Oriented CBC, BMP 05/03/20 05:42 05/03/20 05:42 ecg : NSR64, LVH, diffuse mild nonspecific ST changes (no prior) Prior Cardiac Procedures: Cardiac Catheterization tele: sr Imaging - Results Chest X-ray: Report Reviewed EKG: Image Reviewed Assessment/Plan IMP: Coronary Artery Disease Unstable angina Hyperlipidemia Smoker REC: 1. CAD, chest pain: - Tele benign. echo here unremarkable. -cath 03/2020 in [place] reports 70-80% midlcx (non dom). rec'd pci then but declined, now here with recurrent cp. -cont ASA 81mg daily, Plavix 75mg daily, Atorvastatin 40mg daily, Toprol and long acting nitrate -d/w interventionalist, will be transferred to [facility] for PCI because his anginal sx have worsened on medical therapy 2. HLD: -High intensity statin 3. Smoker: -Cessation advised.
== END 2020-05-05 13:38 | disposition short-term general hospital (02) ==
LOC: JER 18:23 → JERBED 20:58 → J4S 21:59
PROVIDERS: ADMIT Internal Medicine; ATTEND Internal Medicine
DX: I25.119 Atherosclerotic heart disease of native coronary artery with unspecified angina pectoris (principal); E78.5 Hyperlipidemia, unspecified; R61 Generalized hyperhidrosis; R07.9 Chest pain, unspecified; Z71.6 Tobacco abuse counseling; F17.210 Nicotine dependence, cigarettes, uncomplicated
CPT/HCPCS: 36415; 71045-TC-FY; 80053; 80061; 82550; 83036; 83690; 83721; 83735; 83880; 84443; 84484; 85025; 85610; 85730; 93005; 93010; 93306-TC; 99285-25; G0378; U0003